=== PATIENT | male | born 1970 | race Caucasian/White ===

== ENCOUNTER 2017-05-13 22:56 | Emergency (ER) | payer OTHER ==
[2017-05-13 23:26] VITALS: BP 108/76; PULSE 68; TEMP 98.1; BMI 25.3
[2017-05-13] MEDS ORDERED: ACYCLOVIR 400 MG TABLET PO ONE (23:53)
[2017-05-13] MEDS ORDERED: IBUPROFEN 600 MG TABLET (FP) PO ONE ×2 (23:53→23:59)
[2017-05-13] MEDS ORDERED: predniSONE 20 MG TABLET (UD) PO ONE (23:53)
[2017-05-13] MEDS ORDERED: traMADol HCL 50 MG TABLET PO ONE (23:53)
[2017-05-13] MEDS ORDERED: ACYCLOVIR 200 MG CAPSULE ONE (23:59)
[2017-05-13] MEDS ORDERED: predniSONE 20 MG TABLET (UD) ONE (23:59)
[2017-05-13] MEDS ORDERED: traMADol HCL 50 MG TABLET ONE (23:59)
--- NOTE | 2017-05-14 00:12 | PDOC ---
History of Present Illness - General Chief Complaint: Abscess Boil Stated Complaint: CHEST PAIN Time Seen by Provider: 05/13/17 23:27 History Source: Patient Exam Limitations: No Limitations - History of Present Illness Initial Comments: 05/13/17 23:59 46yo male patient with no significant past medical history presents to ED c/o pain with rash under left arm that began Wednesday and has continued to worsen. Patient denies fever, CP, Abd pain, n/v/d, or any other complaints at this time. Timing/Duration: reports: getting worse, week. denies: just prior to arrival, other, constant, changing over time, gone now, intermittent, yesterday, this afternoon, this evening, this morning Severity: Yes: moderate. No: mild, severe Location: reports: torso. denies: none, extremities, face, feet, genitalia, generalized, hands, other, scalp Respiratory Risk Factors: reports: no cause identified. denies: exposure to illness, exposure to allergen, foods, insect bite, insect sting, medications, pollen, soaps, other Modifying Factors: worse with: antihistamine, calamine lotion, prednisone, scratching, topical steriods, other Associated Symptoms: reports: blisters, rash. denies: denies symptoms, change in skin texture, edema, fever, flushing, headache, hives, jaundice, malaise, nasal congestion, numbness, pallor, paresthesia, petechiae, sore throat, swelling/mass/lumps, tingling, other Past History - Travel Traveled outside of the country in the last 30 days: No Close contact w/someone who was outside of country & ill: No - Past Medical History Allergies/Adverse Reactions: Allergies Allergy/AdvReac Type Severity Reaction Status Date / Time No Known Allergies Allergy Verified 05/13/17 23:43 Home Medications: Ambulatory Orders Acyclovir [Zovirax -] 800 mg PO 5XD #35 tablet 05/14/17 Ibuprofen 600 mg PO Q6H PRN #20 tablet 05/14/17 Prednisone [Prednisone 50 MG TABLETS] 50 mg PO DAILY #4 tablet 05/14/17 Tramadol HCl 50 mg PO Q8H PRN #15 tablet MDD 3 tab 05/14/17 - Suicide/Smoking/Psychosocial Hx Smoking History: Never smoked Have you smoked in the past 12 months: No Information on smoking cessation initiated: No Hx Alcohol Use: No Drug/Substance Use Hx: No Review of Systems - Review of Systems Able to Perform ROS?: Yes Is the patient limited Syriac proficient: No Integumentary: Yes: Erythema, Rash All Other Systems: Reviewed and Negative *Physical Exam - Vital Signs Last Vital Signs Temp Pulse Resp BP Pulse Ox 98.1 F 68 19 108/76 99 05/13/17 23:22 05/13/17 23:22 05/13/17 23:22 05/13/17 23:22 05/13/17 23:22 - Physical Exam General Appearance: Yes: Nourished, Appropriately Dressed, Mild Distress. No: Apparent Distress, Moderate Distress, Severe Distress HEENT: positive: EOMI, ANTHONY, Normal ENT Inspection, Normal Voice, Symmetrical, TMs Normal, Pharynx Normal. negative: Pharyngeal Erythema, Tonsillar Exudate, Tonsillar Erythema, Nasal Congestion, Rhinorrhea, Sinus Tenderness, TM Bulging, TM Dull, TM Erythema Neck: positive: Trachea midline, Supple. negative: Rigid, Stridor, Lymphadenopathy (R), Tender lateral, Tender midline Respiratory/Chest: positive: Lungs Clear, Normal Breath Sounds. negative: Chest Tender, Respiratory Distress, Accessory Muscle Use, Labored Respiration, Rapid RR, Decreased Breath Sounds, Paradoxal Breathing, Rhonchi, Stridor, Wheezing, Hyperresonant Cardiovascular: positive: Regular Rhythm, Regular Rate Lymphatic: positive: Adenopathy (Left Axillary), Tenderness Musculoskeletal: positive: Normal Inspection. negative: CVA Tenderness, Decreased Range of Motion, Vertebral Tenderness Extremity: positive: Normal Capillary Refill, Normal Inspection, Normal Range of Motion. negative: Pedal Edema, Swelling, Calf Tenderness, Erythema, Inflammation Integumentary: positive: Normal Color, Dry, Erythema, Rash, Other (Vesicles along Dermatome T4 anterior torso radiating to posterior with inflammation. 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, Fully Oriented, Alert, Normal Mood/ Affect, Normal Response, Motor Strength 5/5 *DC/Admit/Observation/Transfer Diagnosis at time of Disposition: Shingles Qualifiers: Herpes zoster complications: without complications Qualified Code(s): B02.9 - Zoster without complications - Discharge Dispostion Condition at time of disposition: Stable Admit: No - Prescriptions Prescriptions: Acyclovir [Zovirax -] 800 mg PO 5XD #35 tablet Ibuprofen 600 mg PO Q6H PRN #20 tablet PRN Reason: Mild Pain Prednisone [Prednisone 50 MG TABLETS] 50 mg PO DAILY #4 tablet Tramadol HCl 50 mg PO Q8H PRN #15 tablet MDD 3 tab PRN Reason: Severe Pain - Referrals Referrals: STAFF,NOT ON [Primary Care Provider] - - Patient Instructions Printed Discharge Instructions: DI for Shingles Additional Instructions: Follow up with your primary care provider next week. Call to schedule appointment. Take medications as prescribed. Return if symptoms worsen or any concerns for further evaluation. Print Language: LITHUANIAN - Post Discharge Activity
--- NOTE | 2017-05-19 13:24 | EKG ---
Test Reason : Blood Pressure : / mmHG Vent. Rate : 067 BPM Atrial Rate : 067 BPM P-R Int : 156 ms QRS Dur : 098 ms QT Int : 364 ms P-R-T Axes : 071 076 066 degrees QTc Int : 384 ms NORMAL SINUS RHYTHM NORMAL ECG NO PREVIOUS ECGS AVAILABLE Confirmed by RASHAUN KRAMER, JUAN ([id number]) on 05/19/2017 1:24:21 PM Referred By: Confirmed By:JUAN RODNEY MD
== END 2017-05-14 00:57 | disposition home or self-care (01) ==
LOC: SUPCPDRO 22:56 → JER 22:56
DX: B02.9 Zoster without complications (principal)
CPT/HCPCS: 93005; 93010; 99282-25